=== PATIENT | male | born 1980 | race Caucasian/White ===

== ENCOUNTER 2024-02-07 00:25 | Inpatient (IN) | payer BC, OTHER ==
[~2024-02-07] VITALS: Ht 172.7 cm; Wt 133.4 kg
[2024-02-07 01:01] LABS: Basophils # (auto) 0.1 10 ^3/uL (0-0.2); Basophils % (auto) 0.4 % (0.0-2.0); Eosinophils # (auto) 0 10 ^3/uL (0-0.8); Eosinophils % (auto) 0.1 % (0.0-7.0); Hematocrit 38.7 % (41.0-53.0); Hemoglobin 12.8 g/dL (13.5-17.5); Lymphocytes # (auto) 0.3 10 ^3/uL (0.4-5.4); Lymphocytes % (auto) 1.8 % (10.0-50.0); Mean Corpuscular Hemoglobin 33.2 pg (28.0-32.0); Mean Corpuscular Volume 100.6 fL (80.0-100.0); Monocytes # (auto) 0.7 10 ^3/uL (0-1.3); Monocytes % (auto) 4.3 % (0.0-12.0); Neutrophils # (auto) 14.5 10 ^3/uL (1.6-8.6); Neutrophils % (auto) 93.4 % (37.0-80.0); Platelet Count (auto) 123 10^3/uL (140-450); Red Blood Cells 3.85 10^6/uL (4.5-5.90); Red Cell Distribution Width 18.4 % (11.8-14.3); White Blood Cell 15.6 10^3/uL (4.4-10.8)
[2024-02-07] MEDS: SODIUM CHLORIDE 0.9% 1,000 ML IV ONE ×2 (01:12→02:07)
[2024-02-07 01:13] LABS: Chloride 104 mmol/L (98-107); Potassium 3.3 mmol/L (3.5-5.1); Sodium 135 mmol/L (136-145)
[2024-02-07 01:14] LABS: Anion Gap 12 (5-15); Carbon Dioxide 19 mmol/L (20-31)
[2024-02-07 01:15] LABS: Calcium 8.1 mg/dL (8.7-10.4)
[2024-02-07] MEDS: ONDANSETRON HCL 4 MG/2 ML VIAL IV ONE (01:18)
[2024-02-07 01:19] LABS: BUN/Creatinine Ratio 6.3 (10.0-20.0); Blood Urea Nitrogen 7 mg/dL (9-23); Glucose 102 mg/dL (74-106)
[2024-02-07] MEDS: cefTRIAXone 1GM/50ML D5W 50 ML IV ONE (01:19)
[2024-02-07 01:39] LABS: Urine Bacteria FEW /hpf (None Seen); Urine Blood 1+ /uL (Negative); Urine Clarity Ex.Turbid (Clear); Urine Color Light-Orange (Yellow); Urine Protein, UAD 1+ (Negative); Urine Specific Gravity 1.006 (1.001-1.035); Urine Urobilinogen Normal (Negative); Urine WBC 774 /hpf (0 - 3); Urine WBC Clumps PRESENT /hpf (None Seen)
[2024-02-07 02:20] VITALS: PULSE 113; RESP 22; O2SAT 96
[2024-02-07 02:34] LABS: Lactic Acid w/Reflex 3.6 mmol/L (0.4-2.0)
[2024-02-07] MEDS ORDERED: ACETAMINOPHEN 325 MG TAB PO PRN (04:45)
[2024-02-07] MEDS ORDERED: DOCUSATE SOD 100 MG CAP PO PRN (04:45)
[2024-02-07] MEDS: POTASSIUM CHL 20 Meq TABLET PO ONE (06:16)
[2024-02-07 07:16] VITALS: PULSE 104; RESP 18; O2SAT 100
[2024-02-07] MEDS: SODIUM CHLORIDE 0.9% 1,000 ML IV SCH ×2 (07:18→13:43)
[2024-02-07] MEDS ORDERED: NITROGLYCERIN 0.4 MG SL TAB SL PRN (07:30)
[2024-02-07] MEDS ORDERED: MORPHINE SULFATE INJ 2 MG/ml SYRG IV PRN ×2 (07:30→15:30)
[2024-02-07] MEDS: HYDROcodone-ACET 5/325MG TAB PO PRN (07:34)
[2024-02-07 07:47] LABS: Hematocrit 34.2 % (41.0-53.0); Hemoglobin 11.8 g/dL (13.5-17.5); Mean Corpuscular Hemoglobin 33.2 pg (28.0-32.0); Mean Corpuscular Hgb Conc. 34.4 g/dL (32.0-36.0); Mean Corpuscular Volume 96.3 fL (80.0-100.0); Platelet Count (auto) 110 10^3/uL (140-450); Red Blood Cells 3.55 10^6/uL (4.5-5.90); Red Cell Distribution Width 17.7 % (11.8-14.3); White Blood Cell 15.1 10^3/uL (4.4-10.8)
[2024-02-07 07:58] LABS: Band Neutrophils % (manual) 0; Basophils % (manual) 0 (0.0-2.0); Blast Cells 0; Eosinophils % (manual) 0 (0-7); Lymphocytes % (manual) 0 (10.0-50.0); Metamyelocytes % 0; Myelocytes % 0; Promyelocytes % 0; Reactive Lymphocytes 0
[2024-02-07 08:06] LABS: Alanine Aminotransferase 30 U/L (7-40); Albumin 2.9 g/dL (3.2-4.8); Alkaline Phosphatase 222 U/L (46-116); Anion Gap 8 (5-15); Aspartate Aminotransferase 68 U/L (13-40); BUN/Creatinine Ratio 8.8 (10.0-20.0); Blood Urea Nitrogen 10 mg/dL (9-23); Calcium 7.9 mg/dL (8.7-10.4); Carbon Dioxide 23 mmol/L (20-31); Chloride 105 mmol/L (98-107); Glucose 109 mg/dL (74-106); Potassium 3.6 mmol/L (3.5-5.1); Sodium 136 mmol/L (136-145)
[2024-02-07 08:07] LABS: Total Protein 6.1 g/dL (5.7-8.2)
[2024-02-07 09:36] LABS: Monocytes % (manual) 5 (0-12); Platelet Estimate Decreased
[2024-02-07] MEDS: levoFLOXacin 500MG 100 ML IV SCH ×2 (11:08→13:30)
[2024-02-07] MEDS: ONDANSETRON HCL 4 MG/2 ML VIAL IV PRN (13:40)
[2024-02-07] MEDS: MORPHINE SULFATE INJ 2 MG/ml SYRG IV PRN (13:41)
[2024-02-07] MEDS: IOHEXOL 350 MG/ML 100ML IJ ONE (14:14)
[2024-02-07] MEDS ORDERED: IPRATROPIUM BROM 0.5 MG/2.5ML INH SOL NEB PRN (15:30)
[2024-02-07] MEDS ORDERED: HYDROcodone-ACET 5/325MG TAB PO PRN (15:30)
[2024-02-07] MEDS ORDERED: ALBUTEROL SULF 2.5 MG/0.5ML(0.5%) NEB SOLN NEB PRN (15:30)
[2024-02-07] MEDS ORDERED: ACETAMINOPHEN 500 MG TAB PO PRN (15:30)
[2024-02-07 15:32] VITALS: BP 110/79; PULSE 79; RESP 16; TEMP 98.6; O2SAT 95
[2024-02-07 15:37] VITALS: O2SAT 95
[2024-02-07] MEDS: TAMSULOSIN HYDROCHLORIDE 0.4 MG CAP PO SCH (18:11)
[2024-02-07 22:08] VITALS: BP 106/67; PULSE 96; RESP 18; TEMP 98.8; O2SAT 96
[2024-02-07] MEDS: LINEZOLID 600MG/300ML 300 ML IV SCH (22:13)
[2024-02-07] MEDS ORDERED: LEVO500T91 PO (23:10)
[2024-02-07] MEDS ORDERED: TAMS0.4C39 PO (23:10)
[2024-02-08] VITALS (9 sets, daily range): BP systolic 119–132; BP diastolic 71–86; PULSE 72–100; RESP 15–20; TEMP 97.8–99.3; O2SAT 94–97
[2024-02-08 07:43] LABS: Basophils # (auto) 0 10 ^3/uL (0-0.2); Basophils % (auto) 0.6 % (0.0-2.0); Eosinophils # (auto) 0 10 ^3/uL (0-0.8); Eosinophils % (auto) 0.3 % (0.0-7.0); Hematocrit 30.8 % (41.0-53.0); Hemoglobin 10.7 g/dL (13.5-17.5); Lymphocytes # (auto) 0.4 10 ^3/uL (0.4-5.4); Lymphocytes % (auto) 9.6 % (10.0-50.0); Mean Corpuscular Hemoglobin 33.3 pg (28.0-32.0); Mean Corpuscular Hgb Conc. 34.7 g/dL (32.0-36.0); Mean Corpuscular Volume 96.2 fL (80.0-100.0); Monocytes # (auto) 0.3 10 ^3/uL (0-1.3); Monocytes % (auto) 8.6 % (0.0-12.0); Neutrophils # (auto) 3.1 10 ^3/uL (1.6-8.6); Neutrophils % (auto) 80.9 % (37.0-80.0); Nucleated Red Blood Cells % 0.1 %; Platelet Count (auto) 66 10^3/uL (140-450); Red Blood Cells 3.21 10^6/uL (4.5-5.90); Red Cell Distribution Width 17.7 % (11.8-14.3); White Blood Cell 3.9 10^3/uL (4.4-10.8)
[2024-02-08 07:54] LABS: Alanine Aminotransferase 22 U/L (7-40); Albumin 2.5 g/dL (3.2-4.8); Alkaline Phosphatase 150 U/L (46-116); Anion Gap 6 (5-15); Aspartate Aminotransferase 55 U/L (13-40); BUN/Creatinine Ratio 11.5 (10.0-20.0); Blood Urea Nitrogen 15 mg/dL (9-23); Calcium 7.6 mg/dL (8.7-10.4); Carbon Dioxide 23 mmol/L (20-31); Chloride 106 mmol/L (98-107); Glucose 88 mg/dL (74-106); Potassium 3.4 mmol/L (3.5-5.1); Sodium 135 mmol/L (136-145)
[2024-02-08 07:55] LABS: Bilirubin, Total 0.6 mg/dL (0.2-1.0); Total Protein 5.1 g/dL (5.7-8.2)
[2024-02-08] MEDS: cefTRIAXone 1GM/50ML D5W 50 ML IV SCH (08:56)
[2024-02-08 09:07] LABS: Hepatitis B Surface Antigen Negative (Negative)
[2024-02-08 09:28] LABS: Hepatitis C Antibody Negative (Negative)
[2024-02-08] MEDS: AZITHROMYCIN 500MG/ 250ML 250 ML IV SCH (10:00)
[2024-02-08] MEDS: POTASSIUM CHL 20 Meq TABLET PO ONE (14:58)
[2024-02-08] MEDS ORDERED: BET25T PO (16:25)
[2024-02-08] MEDS ORDERED: PIPERACILLIN-TAZOB 3.375GM 100 ML IV SCH (17:00)
[2024-02-08] MEDS: DOXYCYCLINE 100 MG TAB/CAP PO SCH (20:05)
[2024-02-08] MEDS: CIPROFLOXACIN HCL 500 MG TAB PO SCH (20:05)
[2024-02-09] VITALS (7 sets, daily range): BP systolic 129–142; BP diastolic 86–93; PULSE 87–96; RESP 15–20; TEMP 97.5–99.1; O2SAT 94–98
[2024-02-09 09:07] LABS: PSA Free 0.03 ng/mL; Prostate Specific Antigen 0.3 ng/mL (0.0-4.0)
[2024-02-09] MEDS ORDERED: DOXY100C79 PO (12:50)
[2024-02-09] MEDS ORDERED: CIP500T PO (12:50)
== END 2024-02-09 14:32 | disposition home or self-care (01) | DRG 871 ==
LOC: ER 00:25 → OVERFLOW 07:27 → WEST WING 21:52
PROVIDERS: ADMIT Nurse Practitioner Family; ATTEND Nurse Practitioner
DX: A41.9 Sepsis, unspecified organism (principal); J18.9 Pneumonia, unspecified organism; J90 Pleural effusion, not elsewhere classified; Z68.41 Body mass index [BMI] 40.0-44.9, adult; E87.6 Hypokalemia; F17.200 Nicotine dependence, unspecified, uncomplicated; E66.01 Morbid (severe) obesity due to excess calories; I10 Essential (primary) hypertension; N40.0 Benign prostatic hyperplasia without lower urinary tract symptoms; N20.0 Calculus of kidney; N30.90 Cystitis, unspecified without hematuria; Z87.440 Personal history of urinary (tract) infections; Z88.0 Allergy status to penicillin; Z88.8 Allergy status to other drugs, medicaments and biological substances; Z79.899 Other long term (current) drug therapy; Z80.8 Family history of malignant neoplasm of other organs or systems; Z82.49 Family history of ischemic heart disease and other diseases of the circulatory system
CPT/HCPCS: 36415; 71045; 71046; 74177; 80048; 80053; 81001; 83605; 84154; 85007; 85025; 85027; 86803; 87040; 87086; 87340; 93005; 99291; G0378; J1956; J2405